=== PATIENT | female | born 1965 | race Caucasian/White ===

== ENCOUNTER 2017-04-15 17:36 | Emergency (ER) | payer OTHER ==
[2017-04-15] MEDS ORDERED: Lorazepam 2 MG/ML VIAL ONE (17:52)
[2017-04-15 18:16] LABS: #Basophils 0.1 thou/uL (0.0-0.2); #Eosinphils 0.2 thou/uL (0.0-0.7); #Monocytes 0.7 thou/uL (0.11-0.59); #Neutrophils 4.3 thou/uL (1.40-6.50); %Basophils 1.2 % (0.0-1.0); %Lymphocytes 27.2 % (21.0-51.0); %Monocytes 9.1 % (0.0-10.0); %Neutrophils 59.4 % (42.0-75.0); Hemoglobin 14.1 g/dL (12.0-16.0); Mean Corpuscular HGB CONC 31.9 g/dL (32.0-36.0); Mean Corpuscular Hemoglobin 27.5 pg (27.0-31.0); Mean Corpuscular Volume 86.4 fl (81.0-99.0); Mean Platelet Volume 10.1 fL (7.4-10.4); Platelet Count 292 thou/uL (130-400); RBC Distribution Width 12.6 % (11.5-14.5); Red Blood Cell (RBC) Count 5.12 mill/uL (4.20-5.40); White Blood Cell (WBC) Count 7.2 thou/uL (4.8-10.8)
[2017-04-15 18:30] LABS: ALT (SGPT) 41 U/L (8-55); AST (SGOT) 36 U/L (5-34); Albumin 4.2 g/dL (3.5-5.0); Alkaline Phosphatase 104 U/L (40-150); Anion Gap 14 mmol/L (10-20); BUN (Urea Nitrogen) 9 mg/dL (9.8-20.1); Bilirubin, Total 0.3 mg/dL (0.2-1.2); Calc. Creatinine Clearance 0 mL/min (70-130); Calcium 9.7 mg/dL (7.8-10.44); Carbon Dioxide 26 mmol/L (22-29); Chloride 108 mmol/L (98-107); Estimated GFR-MDRD 89; Globulin 3.4 g/dL (2.4-3.5); Glucose 104 mg/dL (70-105); Protein, Total 7.6 g/dL (6.0-8.3); Sodium 144 mmol/L (136-145)
[2017-04-15 18:32] LABS: CKMB 0.5 ng/mL (0-6.6); Troponin I Less than 0.010 ng/mL (< 0.028)
[2017-04-15] MEDS ORDERED: Acetaminophen 500 MG TAB ONE (18:42)
--- NOTE | 2017-04-15 18:54 | RAD ---
PA AND LATERAL VIEWS CHEST: 04/15/17 HISTORY: Chest pain. FINDINGS: Comparison is made with exam of 04/28/15. The heart size is normal. The lungs are well expanded without focal areas of consolidation, pneumotho races, or pleural effusions. No acute osseous abnormalities are seen. IMPRESSION: No radiographic evidence of acute cardiopulmonary process. POS: [facility]
== END 2017-04-15 19:42 | disposition home or self-care (01) ==
LOC: NAV ERS 17:36
DX: F41.9 Anxiety disorder, unspecified (principal); E05.90 Thyrotoxicosis, unspecified without thyrotoxic crisis or storm; R07.2 Precordial pain; E66.9 Obesity, unspecified; E03.9 Hypothyroidism, unspecified; K21.9 Gastro-esophageal reflux disease without esophagitis; J45.909 Unspecified asthma, uncomplicated
CPT/HCPCS: 71046; 80053; 82553; 84443; 84484; 85025; 93005; 96374; J2060

== ENCOUNTER 2017-08-08 20:46 | Emergency (ER) | payer OTHER ==
[2017-08-08] MEDS ORDERED: Lidocaine 1% w/Epinephrine 1:100K 30 ML VIAL ONE (21:05)
[2017-08-08] MEDS ORDERED: HYDROcodone/Acetaminophen 5/325 mg Tablet ONE (21:12)
[2017-08-08] MEDS ORDERED: Bacitracin Zinc 1 Packet ONE (21:32)
== END 2017-08-08 21:40 | disposition home or self-care (01) ==
LOC: NAV ERS 20:46
DX: S01.81XA Laceration without foreign body of other part of head, initial encounter (principal); E03.9 Hypothyroidism, unspecified; F41.9 Anxiety disorder, unspecified; J45.909 Unspecified asthma, uncomplicated; K21.9 Gastro-esophageal reflux disease without esophagitis; Z79.899 Other long term (current) drug therapy; W22.8XXA Striking against or struck by other objects, initial encounter
CPT/HCPCS: 12011; J2001

== ENCOUNTER 2017-08-11 10:23 | Outpatient (CLI) | payer OTHER ==
--- NOTE | 2017-08-11 11:51 | RAD ---
THREE VIEWS OF THE FACIAL BONES: Comparison: None. History: Contusion of the face. FINDINGS: Three views of facial bones shows no evidence of displaced facial bone fracture. The paranasal sinuse s are well aerated. IMPRESSION: No evidence of displaced facial bone fracture. Please note that CT is much more sensitive for detecti on of facial fractures. POS: [facility]
== END 2017-08-11 10:24 | disposition home or self-care (01) ==
LOC: NAV RAD 10:23
PROVIDERS: ATTEND Internal Medicine
DX: S00.83XA Contusion of other part of head, initial encounter (principal)
CPT/HCPCS: 70150